=== PATIENT | female | born 1950 | race American Indian/Alaskan Native ===

== ENCOUNTER 2016-11-02 08:37 | Outpatient (CLI) | payer MEDICARE ==
--- NOTE | 2016-11-02 10:25 | Mammography Report ---
BONE DENSITY STUDY: DEFINITIONS: BMD = Bone Mineral Density T-score = BMD related to mean peak bone mass of young adult (mean expressed in Standard Deviation) Z-score = Age matched BMD expressed in SD World Health Organization (WHO) Diagnostic Criteria Normal T-score > -1 SD Osteopenia T-score between -1 and -2.4 SD Osteoporosis T-score -2.5 SD or below FINDINGS: The weighted average BMD of lumbar spine L1-L4 is 0.773 with a T-score of -2.5. The weighted average BMD of hip is 0.646 with a T-score of -2.4. IMPRESSION: The patient's T-score is diagnostic for osteoporosis and high relative risk for fracture. NOTE: BMD is not the only risk factor for fracture; also consider factors such as the patient's age, risk of falling, previous osteoporotic fracture, family history of osteoporotic fractures, current smoker, and low body weight. Johnson's triangle is a region of interest in femur, predominantly of trabecular bone. It is not a true anatomic site, and [facility] does not recommend its use clinically.
== END 2016-11-02 08:38 | disposition home or self-care (01) ==
LOC: MAMMO 08:37
PROVIDERS: ATTEND Internal Medicine
DX: M81.0 Age-related osteoporosis without current pathological fracture (principal)
CPT/HCPCS: 77080

== ENCOUNTER 2017-03-19 10:16 | Outpatient (CLI) | payer MEDICARE ==
--- NOTE | 2017-03-19 13:46 | Mammography Report ---
STEREOTACTIC VACUUM ASSISTED BIOPSY WITH CLIP PLACEMENT LEFT: 03/19/17 10:16:00 CLINICAL: Calcifications. COMPARISON:[facility] mammograms from 10/19/16 and 02/20/17 FINDINGS: Consent for the procedure was obtained. The calcifications were targeted with stereotactic guidance. The skin was prepped with Betadine and anesthetized with 1% lidocaine. 2% lidocaine with epinephrine was injected for deeper anesthesia. 8 gauge Mammotome biopsy was performed from a lateral approach through a small dermatotomy. Prefire and post-fire images demonstrated satisfactory positioning of the probe. Samples were obtained around the clock face. A specimen radiograph confirmed satisfactory sampling with removal of field representatives director calcifications. A clip was placed at the biopsy site and the placement was confirmed with a radiograph. The probe was removed and hemostasis was achieved with mild pressure. A sterile dressing was applied. The patient tolerated the procedure well and there were no apparent complications. Two view mammogram demonstrated concordant position of the biopsy clip. IMPRESSION: Uncomplicated stereotactic biopsy with clip placement left breast.
--- NOTE | 2017-03-20 12:05 | Mammography Report ---
LEFT DIGITAL DIAGNOSTIC MAMMOGRAM: 03/19/17 10:16:00 CLINICAL: For clip placement immediately status post stereotactic biopsy for calcifications. COMPARISON:Previous [facility] mammogram. FINDINGS: A biopsy clip is now identified in the outer breast. A clip is approximately 2 cm proximal to the biopsy site on the CC view. However, air is present at the site of the biopsy and it is apparent that a few calcifications have been removed. IMPRESSION: Discordant clip placement status post stereotactic biopsy.However, removal of some calcifications. BI-RADS CATEGORY: 4--Suspicious Pathology pending.
== END 2017-03-19 10:17 | disposition home or self-care (01) ==
LOC: SPVWC 10:16
PROVIDERS: ATTEND Surgery
DX: R92.0 Mammographic microcalcification found on diagnostic imaging of breast (principal); I10 Essential (primary) hypertension; E11.9 Type 2 diabetes mellitus without complications; Z98.890 Other specified postprocedural states
CPT/HCPCS: 88305

== ENCOUNTER 2017-08-20 08:46 | Outpatient (CLI) | payer MEDICARE ==
--- NOTE | 2017-08-20 11:46 | Mammography Report ---
BILATERAL DIGITAL DIAGNOSTIC MAMMOGRAM with CAD: 08/20/17 08:46:00 CLINICAL: Followup after left benign stereotactic biopsy for calcifications. COMPARISON: A left postbiopsy mammogram from 03/19/17. Her prior [facility] mammograms are not available. FINDINGS: The breasts are heterogeneously dense, which may obscure small masses.A left upper outer biopsy clip with stable calcifications in the vicinity of the clip. The clip is approximately 2 cm lateral to the calcifications on the CC view. Additional scattered benign calcifications of the left breast. Right upper asymmetry and architectural distortion persists on a spot magnification view. Only corresponding architectural distortion is identified on exaggerated CC views without and with spot magnification. A scar on the skin is marked in the area of the architectural distortion. IMPRESSION: Stable probably benign left calcifications. Probable benign right upper outer scar.We will obtain a prior bilateral mammogram from [facility] to reevaluate both breasts. BI-RADS CATEGORY: 3 - - Probably Benign RECOMMENDATION: Bilateral six month followup mammogram. ACR BI-RADS MAMMOGRAPHIC CODES: 0 = Needs additional imaging evaluation; 1 = Negative; 2 = Benign; 3 = Probably benign; 4 = Suspicious; 5 = Malignant; 6 = Known biopsy-proven malignancy COMMENT: 1. Dense breast tissue, i.e., adenosis, fibrocystic changes, etc., may obscure an underlying neoplasm. 2. Approximately 10% of cancers are not detected with mammography. 3. A negative mammography report should not delay biopsy if a clinically suspicious mass is present. COMMENT: Patient follow-up letters are generated by our [employer] application.
== END 2017-08-20 08:47 | disposition home or self-care (01) ==
LOC: SPVWC 08:46
PROVIDERS: ATTEND Surgery
DX: R92.1 Mammographic calcification found on diagnostic imaging of breast (principal); R92.2 Inconclusive mammogram; F17.210 Nicotine dependence, cigarettes, uncomplicated; I10 Essential (primary) hypertension
CPT/HCPCS: 77066

== ENCOUNTER 2018-02-18 08:16 | Outpatient (CLI) | payer MEDICARE ==
--- NOTE | 2018-02-18 09:26 | Mammography Report ---
BILATERAL DIGITAL DIAGNOSTIC MAMMOGRAM with CAD: 02/18/18 08:16:00 CLINICAL: Followup right architectural distortion and followup after left benign stereotactic biopsy for calcifications. COMPARISON:08/20/17 and 03/19/17. Earlier [facility] mammograms are not available. FINDINGS: The breasts are heterogeneously dense, which may obscure small masses. Stable right upper outer architectural distortion that appears to be a benign surgical scar.Left upper outer cluster microcalcifications are stable since the last exam. The biopsy clip again appears to be discordant. No new calcifications. IMPRESSION: Stable probably benign right architectural distortion and stable probably benign left upper outer calcifications. Recommend additional followup left diagnostic mammogram in six months to reevaluate the left calcifications and a right diagnostic mammogram in six months since we do not have earlier mammograms to establish long-term stability architectural distortion of the right breast. BI-RADS CATEGORY: 3 - - Probably Benign ACR BI-RADS MAMMOGRAPHIC CODES: 0 = Needs additional imaging evaluation; 1 = Negative; 2 = Benign; 3 = Probably benign; 4 = Suspicious; 5 = Malignant; 6 = Known biopsy-proven malignancy COMMENT: 1. Dense breast tissue, i.e., adenosis, fibrocystic changes, etc., may obscure an underlying neoplasm. 2. Approximately 10% of cancers are not detected with mammography. 3. A negative mammography report should not delay biopsy if a clinically suspicious mass is present. COMMENT: Patient follow-up letters are generated by our [employer] application.
== END 2018-02-18 08:17 | disposition home or self-care (01) ==
LOC: SPVWC 08:16
PROVIDERS: ATTEND Surgery
DX: R92.1 Mammographic calcification found on diagnostic imaging of breast (principal); R92.2 Inconclusive mammogram; I10 Essential (primary) hypertension; Z87.891 Personal history of nicotine dependence
CPT/HCPCS: 77066

== ENCOUNTER 2018-09-02 08:00 | Outpatient (CLI) | payer MEDICARE ==
--- NOTE | 2018-09-02 11:46 | Mammography Report ---
BILATERAL DIGITAL DIAGNOSTIC MAMMOGRAM with CAD INDICATION: Follow-up right architectural distortion and follow-up left calcifications. History calci fications stereotactic biopsy of calcifications with discordant clip deployment. TECHNIQUE: Digital bilateral mammographic imaging was performed. Magnification views were obtained. COMPARISON: 02/18/2018 and 08/20/2017 mammograms FINDINGS: Breast Density: The breasts are heterogeneously dense, which may obscure small masses. There is no evidence of dominant mass, suspicious calcifications or architectural distortion in eithe r breast. Magnification views of the right breast demonstrated a benign postsurgical scar and magnifi cation views of the left breast demonstrate fewer calcifications near the upper outer biopsy clip. IMPRESSION: No mammographic evidence of malignancy. Benign right postsurgical scar and benign bilater al calcifications. BI-RADS Category 2: Benign. Recommend routine screening mammography in one year A "normal" or negative report should not discourage follow up or biopsy of a clinically significant f inding. A written summary of these findings will be mailed to the patient. The patient will be entered into a mammography reporting system which will generate a reminder letter for the patient's next appointmen t at the appropriate interval. FURTHER INFORMATION: According to the [employer], yearly mammograms are recommend ed starting at age 40 and continuing as long as a woman is in good health. Breast MRI is recommended for women with an approximately 20-25% or greater lifetime risk of breast cancer, including women wi th a strong family history of breast or ovarian cancer and women who have been treated for Hodgkin's disease. Signer Name: Cale Mayer MD Signed: 09/02/2018 11:42 AM Workstation Name: [id number]
== END 2018-09-02 08:01 | disposition home or self-care (01) ==
LOC: SPVWC 08:00
PROVIDERS: ATTEND Surgery
DX: R92.1 Mammographic calcification found on diagnostic imaging of breast (principal); I10 Essential (primary) hypertension
CPT/HCPCS: 77066

== ENCOUNTER 2019-10-06 08:20 | Outpatient (CLI) | payer MEDICARE ==
--- NOTE | 2019-10-06 09:11 | Mammography Report ---
DIGITAL SCREENING MAMMOGRAM WITH CAD, 10/06/2019 INDICATION: Routine screening mammography. TECHNIQUE: Digital bilateral 2D mammography was obtained in the craniocaudal and mediolateral obliq ue projections. This examination was interpreted with the benefit of Computer-Aided Detection analysi s. COMPARISON: 08/20/2017, 02/18/2018 FINDINGS: Breast Density: The breasts are heterogeneously dense, which may obscure small masses. There is no evidence of dominant mass, suspicious calcifications or architectural distortion in eithe r breast. Postsurgical scar is again noted in the upper outer right breast. Stable calcifications wit h associated biopsy clip are seen in the upper outer left breast. Stable oval benign-appearing nodula r density is noted in the medial right breast. Overall, no significant interval change in the appeara nce of the mammogram. IMPRESSION: No evidence of malignancy. Stable bilateral benign findings. Follow up recommendation: Routine yearly BI-RADS Category 2: Benign. A "normal" or negative report should not discourage follow up or biopsy of a clinically significant f inding. A written summary of these findings will be mailed to the patient. The patient will be entered into a mammography reporting system which will generate a reminder letter for the patient's next appointmen t at the appropriate interval. The [employer] recommends yearly mammograms starting at age 40 and continuing as l demetrius as a woman is in good health. Breast MRI is recommended for women with an approximate 20-25% or greater lifetime risk of breast cancer, including women with a strong family history of breast or ova margo cancer or who have been treated for Hodgkin's disease. Signer Name: Herminia Mora MD Signed: 10/06/2019 9:06 AM Workstation Name: [id number]
== END 2019-10-06 08:21 | disposition home or self-care (01) ==
LOC: SPVWC 08:20
PROVIDERS: ATTEND Surgery
DX: Z12.31 Encounter for screening mammogram for malignant neoplasm of breast (principal)
CPT/HCPCS: 77067

== ENCOUNTER 2020-10-11 09:01 | Outpatient (CLI) | payer MEDICARE ==
--- NOTE | 2020-10-11 11:05 | Mammography Report ---
DIGITAL SCREENING MAMMOGRAM WITH CAD, 10/11/2020 CLINICAL INFORMATION / INDICATION: Routine screening mammography. TECHNIQUE: Digital bilateral 2D mammography was obtained in the craniocaudal and mediolateral obliqu e projections. This examination was interpreted with the benefit of Computer-Aided Detection analysis . COMPARISON: 09/02/2018 FINDINGS: Breast Density: The breasts are heterogeneously dense, which may obscure small masses. No dominant mass, suspicious calcifications, or architectural distortion in either breast. Postsurgical scar, right breast. Multiple benign clusters of calcifications are noted bilaterally. Bi opsy clip, left breast. Overall, no interval change. IMPRESSION: No mammographic evidence of malignancy. Follow up recommendation: Routine yearly BI-RADS Category 2: Benign. A "normal" or negative report should not discourage follow up or biopsy of a clinically significant f inding. A written summary of these findings will be mailed to the patient. The patient will be entered into a mammography reporting system which will generate a reminder letter for the patient's next appointmen t at the appropriate interval. The [employer] recommends yearly mammograms starting at age 40 and continuing as l demetrius as a woman is in good health. Breast MRI is recommended for women with an approximate 20-25% or greater lifetime risk of breast cancer, including women with a strong family history of breast or ova margo cancer or who have been treated for Hodgkin's disease. Signer Name: Herminia Mora MD Signed: 10/11/2020 11:01 AM Workstation Name: [id number]
== END 2020-10-11 09:02 | disposition home or self-care (01) ==
LOC: SPVWC 09:01
PROVIDERS: ATTEND Surgery
DX: Z12.31 Encounter for screening mammogram for malignant neoplasm of breast (principal); N64.89 Other specified disorders of breast
CPT/HCPCS: 77067